=== PATIENT | female | born 1990 | race Caucasian/White ===

== ENCOUNTER 2021-09-13 07:33 | Outpatient (RCR) | payer OTHER, SELFPAY ==
[2021-09-13] MEDS: diphenhydrAMINE HCl CAP 25 MG CAPSULE PO (09:38)
[2021-09-13] MEDS: ACETAMINOPHEN 325 MG TABLET 650 MG PO (09:38)
[2021-09-13] MEDS: FAMOTIDINE 20 MG TABLET PO (09:38)
[2021-09-13 09:40] VITALS: BP 101/54; PULSE 88; TEMP 36.3; O2SAT 99
--- NOTE | 2021-09-13 09:55 | PC.NURSE ---
Patient is on vitamin, unsure of dose.
[2021-09-13] MEDS: HYDROCORTISONE SODIUM SUCCINATE 100 MG/2 ML VIAL IV PUSH (10:11)
--- NOTE | 2021-09-13 10:11 | PC.NURSE ---
Monoclonal antibody treatment stopped, patient with shortness of breath and flushing. Solucortef given. Patient's vital signs
--- NOTE | 2021-09-13 10:15 | PC.NURSE ---
Vital signs are pulse 84, pulse ox 100%, blood pressure 106/54. Patient feeling much better except feels face is puffy.
--- NOTE | 2021-09-13 10:33 | PC.NURSE ---
At 1033, resuming monoclonal antibody.
[2021-09-13 11:34] VITALS: BP 98/59
== END 2021-09-13 17:00 ==
LOC: AMCINF 07:33
PROVIDERS: Visit Provider Internal Medicine Hematology & Oncology
DX: O98.519 Other viral diseases complicating pregnancy, unspecified trimester (principal); U07.1 COVID-19; Z3A.00 Weeks of gestation of pregnancy not specified
CPT/HCPCS: 96374; A9270; J1720; M0245; Q0245